=== PATIENT | female | born 1980 | race Caucasian/White ===

== ENCOUNTER 2020-07-02 14:29 | Outpatient (REF) | payer MEDICARE, MEDICAID, SELFPAY ==
--- NOTE | ~2020-07-02 | MM_ITS ---
EXAMINATION: MM DIAGNOSTIC DIGITAL BREAST TOMOSYNTHESIS, BILATERAL Targeted left breast ultrasound CLINICAL INFORMATION: Right breast pain COMPARISON: Mammography: June 01, 2014 TECHNIQUE: Digital breast tomosynthesis is performed in both the craniocaudal and mediolateral oblique views along with computer-aided detection (CAD). Synthesized 2D images are generated from the tomosynthesis. Additional left craniocaudal spot compression film performed. FINDINGS: There are scattered areas of fibroglandular density (ACR BI-RADS breast composition Category b). There are no significant masses, abnormal calcifications, or other abnormalities. There was question of some faint circumscribed densities about the lateral aspect of the left breast for which spot compression view demonstrated to have been superimposition of structures. Targeted left breast ultrasound did not demonstrate any abnormal cystic or solid masses. No region of abnormal distal sound shadowing is seen. No edematous change. Results are provided to the patient at time of visit by the technologist. MM/MM tomosynthesis diagnostic BI IMPRESSION: No specific mammographic and ultrasound evidence to suggest malignancy. ASSESSMENT: BI-RADS 1: Negative RECOMMENDATION: Clinical follow-up This patient's information was entered into a reminder system with a target due date for their next mammogram.
--- NOTE | ~2020-07-02 | US_ITS ---
EXAMINATION: US DIAGNOSTIC ULTRASOUND BREAST, LEFT CLINICAL INFORMATION: Left breast pain upper outer quadrant and axilla. COMPARISON: Mammography of same day and June 01, 2014. TECHNIQUE: Ultrasound of the breast is performed with real-time stevens scale imaging and color Doppler. FINDINGS: There is no focal suspicious finding. There is no solid mass, architectural abnormality, duct ectasia, or edema in the soft tissue planes. A normal-appearing lymph node is seen at the 2:00 position approximately 10 cm from the nipple. Results are discussed with the patient at time of visit. US/US breast LT limited IMPRESSION: No suspicious ultrasound findings to suggest malignancy of the left breast. ASSESSMENT: BI-RADS 1: Negative RECOMMENDATION: Clinical follow-up This patient's information was entered into a reminder system with a target due date for their next mammogram.
== END 2020-07-02 14:30 | disposition home or self-care (01) ==
LOC: HO.MAMMO 14:29
PROVIDERS: Visit Provider General Practice
DX: N64.4 Mastodynia (principal)
CPT/HCPCS: 76642; 77062; 77066

== ENCOUNTER 2020-07-28 10:50 | Outpatient (REF) | payer MEDICARE, MEDICAID, SELFPAY ==
[2020-07-28 13:43] LABS: MANUAL DIFF FLAG NO
[2020-07-28 13:47] LABS: Basophils Percent Auto 0.3 % (0-2); Eosinophils Absolute Auto 0.2 X10*3/uL (0.0-0.4); Hematocrit 39.4 % (37-47); Hemoglobin 12.6 g/dl (12.0-16.0); Imm Gran Abs Auto 0.06 X10*3/uL (0.00-0.03); Imm Gran Pct Auto 0.6 % (0.0-0.4); Lymphocytes Absolute Auto 3.6 X10*3/uL (1.2-4.9); Lymphocytes Percent Auto 34.1 % (20-40); Mean Corpuscular Hemoglobin 29.1 pg (27.0-33.0); Mean Platelet Volume 9.8 fL (9.4-12.3); Monocytes Absolute Auto 0.6 X10*3/uL (0.1-1.2); Monocytes Percent Auto 5.6 % (2-11); Neutrophils Absolute Auto 6.1 X10*3/uL (2.0-8.3); Neutrophils Percent Auto 57.4 % (45-73); Platelet Count 332 X10*3/uL (160-400); Red Blood Count 4.33 X10*6/uL (4.20-5.50); Red Cell Distribution Width 13.5 % (11.0-16.0); White Blood Count 10.6 X10*3/uL (4.8-10.8)
[2020-07-28 14:05] LABS: Glucose Urine UA NEG (NEG); Leukocyte Esterase Urine NEG (NEG); Nitrite Urine NEG (NEG); Specific Gravity - Urine >= 1.030 (1.005-1.025); Urine Blood 3+ (NEG); Urine Ketones NEG (NEG); Urine Protein 3+ MG/DL (NEG-TRACE)
[2020-07-28 14:09] LABS: Appearance Urine HAZY; Color Urine YELLOW
[2020-07-28 14:11] LABS: Renal w Reflex-LAB USE ONLY Order Verified
[2020-07-28 14:16] LABS: Anion Gap 11 (12-20); Blood Urea Nitrogen 21 mg/dL (9-16); Calcium 9.9 mg/dL (8.4-10.2); Carbon Dioxide 28 mmol/L (22-29); Chloride 103 mmol/L (96-108); Estimated Glomerular Filt Rate > 60; Phosphorus 2.5 mg/dL (2.7-4.5); Potassium 4.1 mmol/L (3.3-5.1); Sodium 138 mmol/L (135-145)
[2020-07-28 14:27] LABS: Renal w Reflex Lab Use Only Order verified
[2020-07-28 14:28] LABS: Bacteria Urine TRACE /LPF; Mucus Urine 1+ /LPF; Squamous Epithelial Cell Urine 2+ /LPF
[2020-07-28 14:41] LABS: Vitamin D 25-OH Total 14.9 ng/mL (>30)
[2020-07-28 15:15] LABS: Creatinine Urine 223.07 mg/dL; Protein/Creatinine Ratio, Ur 1.43 (<0.2); Total Protein Urine Random 319 mg/dL (<12)
== END 2020-07-28 10:51 | disposition home or self-care (01) ==
LOC: HO.10HDL 10:50
PROVIDERS: Visit Provider Internal Medicine Nephrology
DX: I12.9 Hypertensive chronic kidney disease with stage 1 through stage 4 chronic kidney disease, or unspecified chronic kidney disease (principal); N18.9 Chronic kidney disease, unspecified; R80.9 Proteinuria, unspecified
CPT/HCPCS: 36415; 80051; 81001; 82306; 82310; 82565; 84100; 84156; 84520; 85025

== ENCOUNTER 2021-07-01 12:15 | Outpatient (REF) | payer MEDICARE, MEDICAID, SELFPAY ==
--- NOTE | ~2021-07-01 | MM_ITS ---
EXAMINATION: MM SCREENING DIGITAL BREAST TOMOSYNTHESIS, BILATERAL CLINICAL INFORMATION: Screening. Asymptomatic. The lifetime risk of breast cancer based on the Tyrer-Cuzick Model is 8%. COMPARISON: Mammography: 07/02/2020, 06/01/2014 (baseline); targeted left breast ultrasound 07/02/2020. TECHNIQUE: Digital breast tomosynthesis is performed in both the craniocaudal and mediolateral oblique views along with computer-aided detection (CAD). Synthesized 2D images are generated from the tomosynthesis. Additional bilateral CC and left MLO views are provided. FINDINGS: There are scattered areas of fibroglandular density (ACR BI-RADS breast composition Category b). There are no significant masses, abnormal calcifications, or other abnormalities. Parenchymal pattern is similar to prior studies. There is no developing density or architectural abnormality. The axilla and skin contours are unremarkable. No significant changes. MM/MM tomosynthesis screening BI IMPRESSION: No mammographic evidence of malignancy. ASSESSMENT: BI-RADS 1: Negative RECOMMENDATION: Routine annual mammography screening. This patient's information was entered into a reminder system with a target due date for their next mammogram.
== END 2021-07-01 12:16 | disposition home or self-care (01) ==
LOC: HO.MAMMO 12:15
PROVIDERS: Visit Provider Student in an Organized Health Care Education/Training Program
DX: Z12.31 Encounter for screening mammogram for malignant neoplasm of breast (principal)
CPT/HCPCS: 77063; 77067

== ENCOUNTER 2021-07-04 10:51 | Outpatient (REF) | payer MEDICARE, MEDICAID, SELFPAY ==
[2021-07-04 13:37] LABS: Anion Gap 10 (12-20); Blood Urea Nitrogen 16 mg/dL (9-16); Calcium 10.8 mg/dL (8.4-10.2); Carbon Dioxide 29 mmol/L (22-29); Chloride 102 mmol/L (96-108); Estimated Glomerular Filt Rate > 60; Potassium 3.8 mmol/L (3.3-5.1); Sodium 137 mmol/L (135-145)
[2021-07-04 14:05] LABS: Creatinine Urine 226.62 mg/dL; Microalbum/Creatinine Ratio Ur 216.2 ug/mg cr; Total Protein Urine Random 69 mg/dL (<12)
[2021-07-04 14:13] LABS: Appearance Urine HAZY; Color Urine YELLOW; Glucose Urine UA NEG (NEG); Leukocyte Esterase Urine NEG (NEG); Nitrite Urine NEG (NEG); PH 5.5 (5.0-8.0); Specific Gravity - Urine 1.025 (1.005-1.025); Urine Blood 3+ (NEG); Urine Ketones 5 MG/DL (NEG); Urine Protein 2+ MG/DL (NEG-TRACE)
[2021-07-04 14:58] LABS: Bacteria Urine 1+ /LPF; RBC Urine 0-2 /HPF (0); Squamous Epithelial Cell Urine 3+ /LPF
== END 2021-07-04 10:52 | disposition home or self-care (01) ==
LOC: HO.10HDL 10:51
PROVIDERS: Visit Provider Internal Medicine Nephrology
DX: Z13.89 Encounter for screening for other disorder (principal)
CPT/HCPCS: 36415; 80051; 81001; 82043; 82310; 82565; 84156; 84520

== ENCOUNTER 2022-07-04 11:10 | Outpatient (REF) | payer MEDICARE, MEDICAID, SELFPAY ==
[2022-07-04 14:17] LABS: Anion Gap 15 (12-20); Blood Urea Nitrogen 14 mg/dL (9-16); Calcium 10.5 mg/dL (8.4-10.2); Carbon Dioxide 26 mmol/L (22-29); Chloride 101 mmol/L (96-108); Estimated Glomerular Filt Rate > 60; Sodium 138 mmol/L (135-145)
[2022-07-04 14:26] LABS: Appearance Urine Turbid; Color Urine Dark Yellow; Glucose Urine UA Negative (Negative); Leukocyte Esterase Urine Small (1+) (Negative); Nitrite Urine Positive (Negative); PH 5.5 (5.0-9.0); Specific Gravity - Urine 1.025 (1.005-1.025); UMIC TRIGGER UA YES; Urine Blood Small (1+) (Negative); Urine Ketones Negative (Negative); Urine Protein 100 (2+) mg/dL (Neg-Trace)
[2022-07-04 14:40] LABS: Bacteria Urine 4+ (None Seen); Hyaline Casts Urine 0-2 /LPF (0-2); RBC Urine 0-2 /HPF (0-2)
[2022-07-04 14:49] LABS: Creatinine Urine 321.29 mg/dL; Microalbum/Creatinine Ratio Ur 76.5 ug/mg cr; Protein/Creatinine Ratio, Ur 0.13 (<0.2); Total Protein Urine Random 43 mg/dL (<12)
== END 2022-07-04 11:11 | disposition home or self-care (01) ==
LOC: HO.10HDL 11:10
PROVIDERS: Visit Provider Internal Medicine Nephrology
DX: R80.1 Persistent proteinuria, unspecified (principal); N02.8 Recurrent and persistent hematuria with other morphologic changes
CPT/HCPCS: 36415; 80051; 81001; 82043; 82310; 82565; 84156; 84520

== ENCOUNTER 2022-08-15 09:20 | Outpatient (REF) | payer MEDICARE, MEDICAID, SELFPAY ==
--- NOTE | ~2022-08-15 | MM_ITS ---
EXAMINATION: MM SCREENING DIGITAL BREAST TOMOSYNTHESIS, BILATERAL CLINICAL INFORMATION: Screening. Asymptomatic. The lifetime risk of breast cancer based on the Tyrer-Cuzick Model is 9%. COMPARISON: Mammography: 07/01/2021, 07/02/2020, 06/01/2014; left breast ultrasound 07/02/2020 TECHNIQUE: Digital breast tomosynthesis is performed in both the craniocaudal and mediolateral oblique views along with computer-aided detection (CAD). Synthesized 2D images are generated from the tomosynthesis. Additional bilateral MLO views are provided. FINDINGS: There are scattered areas of fibroglandular density (ACR BI-RADS breast composition Category b). There are no significant masses, abnormal calcifications, or other abnormalities. Parenchymal pattern is similar to prior studies. There is no developing density or architectural abnormality. The axilla and skin contours are unremarkable. No significant changes. MM/MM tomosynthesis screening BI IMPRESSION: No mammographic evidence of malignancy. ASSESSMENT: BI-RADS 1: Negative RECOMMENDATION: Routine annual mammography screening. This patient's information was entered into a reminder system with a target due date for their next mammogram.
== END 2022-08-15 09:21 | disposition home or self-care (01) ==
LOC: HO.MAMMO 09:20
PROVIDERS: PCP Student in an Organized Health Care Education/Training Program; Visit Provider Student in an Organized Health Care Education/Training Program
DX: Z12.31 Encounter for screening mammogram for malignant neoplasm of breast (principal)
CPT/HCPCS: 77063; 77067

== ENCOUNTER 2022-11-10 10:47 | Outpatient (REF) | payer MEDICARE, MEDICAID, SELFPAY ==
--- NOTE | ~2022-11-10 | XR_ITS ---
EXAMINATION: XR THORACIC SPINE CLINICAL INFORMATION: Thoracic spine pain COMPARISON: None available. TECHNIQUE: 3 views of the thoracic spine were obtained. FINDINGS: There is mild dextroscoliosis of thoracic spine. Vertebral bodies are well aligned and intervertebral discs are seen. There is minimal marginal spurring at the endplates of T10-L1 soft tissues unremarkable XR/XR thoracic spine 3V IMPRESSION: Mild degenerative changes with marginal spurring
== END 2022-11-10 10:48 | disposition home or self-care (01) ==
LOC: HO.XRAY 10:47
PROVIDERS: Visit Provider Nurse Practitioner Family
DX: M54.6 Pain in thoracic spine (principal)
CPT/HCPCS: 72072

== ENCOUNTER 2022-12-13 13:54 | Outpatient (REF) | payer MEDICARE, MEDICAID, SELFPAY | END 2022-12-13 13:55 | disposition home or self-care (01) | LOC: HO.CHCLNP 13:54 | PROVIDERS: Visit Provider Family Medicine | DX: T14.8XXA Other injury of unspecified body region, initial encounter (principal); R82.90 Unspecified abnormal findings in urine; X58.XXXA Exposure to other specified factors, initial encounter; Y93.9 Activity, unspecified; Y92.9 Unspecified place or not applicable; Y99.9 Unspecified external cause status | CPT/HCPCS: 87070; 87086; 87088; 87186; 87205 ==

== ENCOUNTER 2023-03-13 10:28 | Outpatient (REF) | payer MEDICARE, MEDICAID, SELFPAY ==
[2023-03-13 15:17] LABS: Alanine Aminotransferase 12 U/L (0-31); Alkaline Phosphatase 62 U/L (39-117); Anion Gap 14 (12-20); Aspartate Amino Transferase 16 U/L (5-31); Bilirubin Direct 0.2 mg/dL (0.0-0.5); Bilirubin Total 0.5 mg/dL (0.0-1.0); Blood Urea Nitrogen 18 mg/dL (9-16); Calcium 10.5 mg/dL (8.4-10.2); Carbon Dioxide 24 mmol/L (22-29); Chloride 105 mmol/L (96-108); Cholesterol 139 mg/dL (<200); Estimated Glomerular Filt Rate > 60; Glucose Random 77 mg/dL (60-115); HDL Cholesterol 38 mg/dL (>40); LDL Cholesterol Calculated 87 mg/dL (<100); Potassium 3.6 mmol/L (3.3-5.1); Sodium 139 mmol/L (135-145); Total Protein 7.4 g/dL (6.5-8.0); Triglycerides 72 mg/dL (<150)
[2023-03-14 08:54] LABS: ~Hepatitis C Antibody Nonreactive (Nonreactive)
[2023-03-17 07:09] LABS: HIV RNA PCR Qn Copies Not Detected Copies/mL; HIV RNA PCR Qn Log Copies Not Detected Log cps/mL
== END 2023-03-13 10:29 | disposition home or self-care (01) ==
LOC: HO.CHCLDS 10:28
PROVIDERS: Visit Provider Student in an Organized Health Care Education/Training Program
DX: Z00.00 Encounter for general adult medical examination without abnormal findings (principal); I10 Essential (primary) hypertension; N02.B9 Other recurrent and persistent immunoglobulin A nephropathy; Z11.4 Encounter for screening for human immunodeficiency virus [HIV]; Z11.59 Encounter for screening for other viral diseases; Z13.220 Encounter for screening for lipoid disorders
CPT/HCPCS: 36415; 80048; 80061; 80076; 86803; 87536; 87900

== ENCOUNTER 2023-07-31 09:26 | Outpatient (REF) | payer MEDICARE, MEDICAID, SELFPAY ==
[2023-07-31 10:28] LABS: MANUAL DIFF FLAG NO
[2023-07-31 10:42] LABS: Basophils Percent Auto 0.2 % (0-2); Eosinophils Absolute Auto 0.2 X10*3/uL (0.0-0.4); Eosinophils Percent Auto 1.6 % (0-4); Hematocrit 40.3 % (37.0-47.0); Hemoglobin 13.5 g/dl (12.0-16.0); Imm Gran Abs Auto 0.07 X10*3/uL (0.00-0.03); Imm Gran Pct Auto 0.7 % (0.0-0.4); Lymphocytes Absolute Auto 3.6 X10*3/uL (1.2-4.9); Lymphocytes Percent Auto 34.9 % (20-40); Mean Corpuscular HGB Conc 33.5 g/dl (31.0-35.0); Mean Corpuscular Hemoglobin 30.9 pg (27.0-33.0); Mean Corpuscular Volume 92.2 fL (80.0-98.0); Mean Platelet Volume 9.6 fL (9.4-12.3); Monocytes Absolute Auto 0.5 X10*3/uL (0.1-1.2); Monocytes Percent Auto 5.2 % (2-11); Neutrophils Percent Auto 57.4 % (45-73); Platelet Count 249 X10*3/uL (160-400); Red Blood Count 4.37 X10*6/uL (4.20-5.50); Red Cell Distribution Width 13.3 % (11.0-16.0); White Blood Count 10.4 X10*3/uL (4.8-10.8)
[2023-07-31 10:44] LABS: Appearance Urine Clear; Color Urine Yellow; Glucose Urine UA Negative (Negative); Leukocyte Esterase Urine Negative (Negative); Nitrite Urine Negative (Negative); Specific Gravity - Urine 1.015 (1.005-1.025); Urine Blood Negative (Negative); Urine Ketones Negative (Negative); Urine Protein Negative (Neg-Trace)
[2023-07-31 10:51] LABS: Bacteria Urine None Seen (None Seen); Hyaline Casts Urine 0-2 /LPF (0-2); RBC Urine 0-2 /HPF (0-2); WBC Urine 0-5 /HPF (0-5)
[2023-07-31 11:06] LABS: Anion Gap 11 (12-20); Blood Urea Nitrogen 17 mg/dL (9-16); Calcium 10.3 mg/dL (8.4-10.2); Carbon Dioxide 25 mmol/L (22-29); Chloride 103 mmol/L (96-108); Estimated Glomerular Filt Rate > 60; Potassium 3.3 mmol/L (3.3-5.1); Sodium 136 mmol/L (135-145)
[2023-07-31 11:13] LABS: Vitamin D 25-OH Total 21.9 ng/mL (>30)
[2023-07-31 11:18] LABS: Creatinine Urine 108.59 mg/dL; Microalbum/Creatinine Ratio Ur 38.6 ug/mg cr (<30); Protein/Creatinine Ratio, Ur 0.11 (<0.2); Total Protein Urine Random 12 mg/dL (<12)
== END 2023-07-31 09:27 | disposition home or self-care (01) ==
LOC: HO.10HDL 09:26
PROVIDERS: Visit Provider Internal Medicine Nephrology
DX: I12.9 Hypertensive chronic kidney disease with stage 1 through stage 4 chronic kidney disease, or unspecified chronic kidney disease (principal); N18.9 Chronic kidney disease, unspecified; R82.90 Unspecified abnormal findings in urine
CPT/HCPCS: 36415; 80051; 81001; 82043; 82306; 82310; 82565; 82570; 84156; 84520; 85025; 87086

== ENCOUNTER 2023-08-21 13:24 | Outpatient (REF) | payer MEDICARE, MEDICAID, SELFPAY | END 2023-08-21 13:25 | disposition home or self-care (01) | LOC: HO.MAMMO 13:24 | PROVIDERS: PCP Student in an Organized Health Care Education/Training Program; Visit Provider Student in an Organized Health Care Education/Training Program | DX: Z12.31 Encounter for screening mammogram for malignant neoplasm of breast (principal) | CPT/HCPCS: 77063; 77067 ==

== ENCOUNTER → 2023-08-21 13:30 | Outpatient (BNV) | payer MEDICARE, MEDICAID, SELFPAY | PROVIDERS: PCP Student in an Organized Health Care Education/Training Program; Visit Provider Radiology Diagnostic Radiology | DX: Z12.31 Encounter for screening mammogram for malignant neoplasm of breast (principal) | CPT/HCPCS: 77063; 77067 ==

== ENCOUNTER 2024-03-17 11:19 | Outpatient (REF) | payer MEDICARE, MEDICAID, SELFPAY ==
--- OUTSIDE RECORDS SUMMARY | 2024-03-17 11:22 | XMS_ITS | Continuity of Care Document ---
Author Organization [facility] Address [address] [place] [phone]- Care Team Providers Care Tipple Tender Name Role Phone Sheila Rodriguez MD Primary Care Physician En[place] [facility] [place] Date(s): 02/05/24 - 03/06/24 [facility] [address] [place] [phone]- Attending Physician: Marin Lima Admitting Physician: Marin Lima Referring Physician: Marin Lima Encounter Type: Triage Allergies, Adverse Reactions, Alerts No Known Allergies Medications allopurinol 100 mg oral tablet 100 mg, 1, tablet, By Mouth, 2 times a day, # 60 tablet, Refills 0, Maintenance, 08/04/21 12:00:00 PMEDT, Partial fill upon patient request if the prescription is for a schedule II opioid drug. Start Date: 08/04/21 Status: Ordered Quantity: 60.0 Unit: tablet Repeat number: 1 amLODIPine 5 mg oral tablet 5 mg, 1, tablet, By Mouth, Daily in AM, # 30 tablet, Refills 0, Maintenance, 05/29/17 2:18:20 PM EST Start Date: 05/29/17 Status: Ordered Quantity: 30.0 Unit: tablet Repeat number: 1 Hydrochlorothiazide = 12.5 mg, By Mouth, Daily in AM, 0 Refills, Maintenance, 10/22/16 4:36:07 PM EDT Start Date: 10/22/16 Status: Ordered Repeat number: 1 Liletta 52 mg intrauterine device 1 each = 52 mg, Intrauterine, Once, # 1 each, 0 Refills, Soft Stop, 06/12/23 1:36:00 PM EDT, [facility]/pharmacy #[id number], Partial fill upon patient request if the prescription is for a schedule II opioid drug., 160.02, cm, 06/12/23 13:32:00 EDT, Height, 126.3, kg, 06/12/23 13:32:00 EDT, Dry Weight Start Date: 06/12/23 Status: Ordered Quantity: 1.0 Unit: each Repeat number: 1 Oyster Shell Calcium with Vitamin D 500 mg-200 iu oral tablet 1 tablet, By Mouth, Daily in AM, # 60 tablet, 0 Refills, Maintenance, 08/04/21 11:59:00 AM EDT, Tablet, Partial fill upon patient request if the prescription is for a schedule II opioid drug. Start Date: 08/04/21 Status: Ordered Quantity: 60.0 Unit: tablet Repeat number: 1 Tylenol 325 mg oral tablet 650 mg, 2, tablet, By Mouth, Every 4 hours, PRN, # 40 tablet, Refills 0, Tot. Refills 0, Maintenance, for pain, 07/02/23 2:56:00 PM EDT, Route to Pharmacy Electronically, [facility]/pharmacy #[id number], Partial fill upon patient request if the prescription is for a schedule II opioid drug., 158, cm, 07/02/23 13:46:00 EDT, Height, 127, kg, 07/02/23 13:46:00 EDT, Dry Weight Start Date: 07/02/23 Status: Ordered Quantity: 40.0 Unit: tablet Repeat number: 1 valsartan 320 mg oral tablet 1 tablet = 320 mg, By Mouth, Daily in AM, # 30 tablet, 0 Refills, Maintenance, 08/04/21 11:59:00 AM EDT, Tablet, Partial fill upon patient request if the prescription is for a schedule II opioid drug. Start Date: 08/04/21 Status: Ordered Quantity: 30.0 Unit: tablet Repeat number: 1 Problem List Condition Confirmation Course Effective Dates Status H ealth Status Informant Abnormal vaginal bleeding Confirmed Active Last pap smear in [facility] 10/20/09 negative. 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 - Global sclerosis of 1 of 16 glomeruli (5%) with minimal interstitial fibrosis Social History Social History Type Response Smoking Status Never smoker entered on: 07/04/17 Sex Sex Representation Female (finding) Patient Care team information Care Team Personnel Name: Arielle Hahn MA Position: [facility] Outreach Member Role: Lifetime Consulting Physician Name: Sheila Rodriguez MD Position: [facility] Outreach Member Role: PCP Address: [address] [place] [address] Telecom: Name: Marialuisa Hickman RN Position: [facility] Nurse Member Role: Primary Care Nurse Care Team Related Persons Name: GEE GOODRICH Name: STEFANI SUN Insurance Providers Guarantor name: GEE SIMONS Health Plan Information #: 1 Payer: MEDICARE PART B OUTPT Member Number: NA Policy Number: NA Group Number: NA Health Plan Information #: 2 Payer: [place] Member Number: NA Policy Number: NA Group Number: NA
--- OUTSIDE RECORDS SUMMARY | 2024-03-17 11:22 | XMS_ITS | Continuity of Care Document ---
Author Organization [facility] Address [address] [place] [phone]- Care Team Providers Care Cargo Router Name Role Phone Sheila Rodriguez MD Primary Care Phys[id number] - [facility]06/24 [facility] [address] [place] [phone]- Attending Physician: Renato Bowman MD Admitting Physician: Renato Bowman MD Encounter Type: Pre-OutPatient One Time Allergies, Adverse Reactions, Alerts No Known Allergies [...] Refills, Soft Stop, 06/12/23 1:36:00 PM EDT, [facility]/pharmacy #[id number], Partial fill upon patient request [...] 2:56:00 PM EDT, Route to Pharmacy Electronically, [facility]/pharmacy #[id number], Partial fill upon patient request [...] Team Personnel Name: Arielle Hahn MA Position: [facility] Outreach Member Role: Lifetime Consulting Physician Name: Sheila Rodriguez MD Position: [facility] Outreach Member Role: PCP Address: [address] [place] [address] Telecom: Name: Marialuisa Hickman RN Position: [facility] Nurse Member Role: Primary Care Nurse Care Team Related Persons Name: GEE GOODRICH Name: STEFANI SUN Insurance Providers Guarantor name: GEE SIMONS Health Plan Information #: 1 Payer: MEDICARE PART B OUTPT Member Number: [id number] Policy Number: NA Group Number: NA Health Plan Information #: 2 Payer: [place] Member Number: [id number] Policy Number: NA Group Number: NA
[2024-03-17 14:46] LABS: Alanine Aminotransferase 23 U/L (0-31); Albumin Level 3.9 g/dL (3.5-5.0); Alkaline Phosphatase 59 U/L (39-117); Anion Gap 10 (12-20); Aspartate Amino Transferase 35 U/L (5-31); Bilirubin Direct 0.2 mg/dL (0.0-0.5); Bilirubin Total 0.4 mg/dL (0.0-1.0); Blood Urea Nitrogen 14 mg/dL (9-16); Calcium 10.3 mg/dL (8.4-10.2); Carbon Dioxide 29 mmol/L (22-29); Chloride 104 mmol/L (96-108); Cholesterol 141 mg/dL (<200); Estimated Glomerular Filt Rate > 60; Glucose Random 80 mg/dL (60-115); HDL Cholesterol 42 mg/dL (>40); LDL Cholesterol Calculated 82 mg/dL (<100); Potassium 3.5 mmol/L (3.3-5.1); Sodium 139 mmol/L (135-145); Total Protein 7.4 g/dL (6.5-8.0); Triglycerides 86 mg/dL (<150)
[2024-03-18 08:02] LABS: HIV AB/AG Nonreactive (Nonreactive); HIV Num 1 0.04 S/CO (0.00-0.99); ~HepC Num1 0.09 S/CO (0.00-0.79); ~Hepatitis C Antibody Nonreactive (Nonreactive)
[2024-03-19 17:43] LABS: RPR Rapid Plasma Reagin NON-REACTIVE (NON-REACTIVE)
== END 2024-03-17 11:20 | disposition home or self-care (01) ==
LOC: HO.CHCLDS 11:19
PROVIDERS: Visit Provider Student in an Organized Health Care Education/Training Program
DX: I10 Essential (primary) hypertension (principal); Z11.3 Encounter for screening for infections with a predominantly sexual mode of transmission
CPT/HCPCS: 36415; 80048; 80061; 80076; 86592; 86803; 87389

== ENCOUNTER 2024-07-30 10:33 | Outpatient (REF) | payer MEDICARE, MEDICAID, SELFPAY ==
--- OUTSIDE RECORDS SUMMARY | 2024-07-30 11:56 | XMS_ITS | Continuity of Care Document ---
Author Organization [facility] Address [address] [place] [phone]- Care Team Providers Care Lean Sensei Name Role Phone Sheila Rodriguez MD Primary Care Physician [place] [facility] [place] Date(s): 06/26/24 - 07/26/24 [facility] [address] [place] [phone]- Attending Physician: Marin Lima Admitting Physician: Marin Lima Referring Physician: AdmtrMarin Encounter Type: Triage Allergies, Adverse Reactions, Alerts No Known Allergies Medications acetaminophen 325 mg oral capsule 3 capsule = 975 mg, By Mouth, Every 8 hours, PRN as needed for fever, # 90 capsule, 0 Refills, Maintenance, 04/22/24 10:13:00 AM EST, Capsule, [facility]/pharmacy #[id number], Partial fill upon patient request if the prescription is for a schedule II opioid drug., 158, cm, 04/22/24 8:14:00 EST, Height, 126.6, kg, 04/22/24 8:14:00 EST, Dry Weight Start Date: 04/22/24 Status: Ordered Quantity: 90.0 Unit: capsule Repeat number: 1 allopurinol 100 mg oral tablet 100 mg, [...] Quantity: 30.0 Unit: tablet Repeat number: 1 diclofenac sodium 50 mg oral delayed release tablet 1 tablet = 50 mg, By Mouth, 3 times a day, 0 Refills, Maintenance, 06/26/24 11:54:00 AM EDT, Partialfill upon patient request if the prescription is for a schedule II opioid drug. Start Date: 06/26/24 Status: Ordered Repeat number: 1 furosemide 20 mg oral tablet 1, capsule, By Mouth, Once, # 1 tablet, Refills 0, Maintenance, 06/26/24 11:54:00 AM EDT, Partial fill upon patient request if the prescription is for a schedule II opioid drug. Start Date: 06/26/24 Status: Ordered Quantity: 1.0 Unit: tablet Repeat number: 1 Hydrochlorothiazide = 12.5 mg, By Mouth, Daily in AM, 0 Refills, Maintenance, 10/22/16 4:36:07 PM EDT Start Date: 10/22/16 Status: Ordered Repeat number: 1 hydrochlorothiazide 25 mg oral tablet 90 each, 0 Refill(s), TAKE 1 TABLET BY MOUTH EVERY DAY, Refills 0, 06/26/24 11:52:00 AM EDT, Partialfill upon patient request if the prescription is for a schedule II opioid drug. Start Date: 06/26/24 Status: Ordered Repeat number: 1 lidocaine 5% topical film 1 patch, Topically, Daily, PRN Pain , Mild, remove after 12 hours, # 13 each, 0 Refills, Maintenance, 04/22/24 10:13:00 AM EST, Film, [facility]/pharmacy #[id number], Partial fill upon patient request if the prescription is for a schedule II opioid drug., 1 patch Topically Daily,PRN:Pain , Mild,Instr:remove after 12 hours, 158, cm, 04/22/24 8:14:00 EST, Height, 126.6, kg, 04/22/24 8:14:00 EST, Dry Weight Start Date: 04/22/24 Status: Ordered Quantity: 13.0 Unit: each Repeat number: 1 Liletta 52 mg intrauterine device 1 each = 52 mg, Intrauterine, Once, # 1 each, 0 Refills, Soft Stop, 06/12/23 1:36:00 PM EDT, [facility]/pharmacy #[id number], Partial fill upon patient request if [...] Quantity: 60.0 Unit: tablet Repeat number: 1 pregabalin 75 mg oral capsule 1 capsule = 75 mg, By Mouth, 2 times a day, 0 Refills, Maintenance, 06/26/24 11:55:00 AM EDT, Partial fill upon patient request if the prescription is for a schedule II opioid drug. Start Date: 06/26/24 Status: Ordered Repeat number: 1 valsartan 320 mg oral [...] Team Personnel Name: Arielle Hahn MA Position: [facility] Outreach Member Role: Lifetime Consulting Physician Name: Sheila Rodriguez MD Position: [facility] Outreach Member Role: PCP Address: [address] [place] [address] Telecom: Name: Marialuisa Hickman RN Position: [facility] Nurse Member Role: Primary Care Nurse Care [...]
--- OUTSIDE RECORDS SUMMARY | 2024-07-30 11:56 | XMS_ITS | Clinical Summary ---
Author Organization [facility] ity Address [address] [place] [address] Care Team Providers Care Culinary Internship Name Role Phone Unavailable Primary Care Provider Unavailabl e Social History Tobacco Use Types Packs/Day Years Used Date Smoking Tobacco: Never Assessed Comments Unknown Sex and Gender Information Value Date Recorded Sex Assigned at Not on file Legal Sex Female 4:55 AM EST Gender Identity Not on file Sexual Orientation Not on file Plan of Treatment Health Maintenance Due Date Last Done Comments Breast Cancer Screening 1982 DTaP,Tdap,and Td Vaccines (1 - Tdap) 2001 Hepatitis B Vaccines (1 of 3 - 19+ 3-dose series) 2001 Cervical Cancer Screening: P ap Smear 2003 COVID-19 Vaccine (2023-2 5 season) 2023 Influenza Vaccine (Season Ended) 2024 HIB Vaccines Aged Out No longer eligi ble based on patient's age to complete this topic HPV Vaccines Aged Out No longer eligi ble based on patient's age to complete this topic Hepatitis A Vaccines Aged Out No long er eligible based on patient's age to complete this topic IPV Vaccines Aged Out No longer eligi ble based on patient's age to complete this topic MMR Vaccines Aged Out No longer eligi ble based on patient's age to complete this topic Meningococcal ACWY Vaccine Aged Out N o longer eligible based on patient's age to complete this topic Meningococcal B Vaccine Aged Out No l onger eligible based on patient's age to complete this topic Pneumococcal Vaccine: Pediat rics (0 to 5 Years) and At-Risk Patients (6 to 64 Years) Aged Out No longer eligible b ased on patient's age to complete this topic RSV Immunization Patients Un lexi 20 months Aged Out No longer eligible b ased on patient's age to complete this topic Varicella Vaccines Aged Out No longer eligible based on patient's age to complete this topic
--- OUTSIDE RECORDS SUMMARY | 2024-07-30 11:56 | XMS_ITS | Encounter Summary ---
Author Organization [facility] Address [address] [place] [address] Care Team Providers Care Human Resources Records Clerk Name Role Phone Sheila Rodriguez MD Primary Care Provider [phone] Encounter Details Date Type Department Care Team (Late st Contact Info) Description 11/27/2023 Orders Only [facility] [address] [place], [place] [phone] Provider, MD Lillie Social History Tobacco Use Types Packs/Day Years Used Date Smoking Tobacco: Never Smokeless Tobacco: Never Alcohol Use Standard Drinks/Week Comments Never 0 (1 standard drink = 0.6 oz pur e alcohol) Depression Answer Date Recorded Patient Health Questionnaire-9 Score 0 03/07/2023 Patient Health Questionnaire-9 Score 0 03/07/2023 Last PHQ-9: Questionnaire Data Not on file 1 05/08/2022 Housing Stability Answer Date Recorded What is your housing situation today? I have jojo capone 02/27/[address] you li ve. Do you have problems with any of the following? None of the above 02/27/2023 Food Insecurity Answer Date Recorded Within the past 12 months, y ou worried that your food would run out before you got money to buy more: Never True 02/27/2023 Within the past 12 months,th e food you bought just didn't last and you didn't have enough money to get more: Never True Transportation Answer Date Recorded In the past 12 months, has l ack of transportation kept you from medical appts, meetings, work or from getting things needed for daily living? No 02/27/2023 Utilities Answer Date Recorded In the past 12 months, has t he electric, gas, oil or water company threatened to shut off services in your home? No 02/27/2023 Depression Answer Date Recorded Patient Health Questionnaire-2 Score 0 03/07/2023 Comments No Sex and Gender Information Value Date Recorded Sex Assigned at Female 01/30/2022 10:17 AM EDT Legal Sex Female 10:17 AM EDT Gender Identity Female 07/03/2024 3:17 PM EDT Sexual Orientation Straight 07/03/2024 3: 17 PM EDT documented as of this encounter Plan of Treatment Upcoming Encounters Date Type Department Care Team (Late st Contact Info) Description 10/02/2024 11:15 AM EDT Telemedicine [facility] [address], [place] [phone] Sheila Rodriguez MD [address] [place] [address] documented as of this encounter Procedures Procedure Name Priority Date/Time Associated Diagnosis Comments XR SHOULDER 2 OR MORE VIEWS LEFT Routine 11/27/2023 1:17 PM EDT documented in this encounter Results * XR SHOULDER 2 OR MORE VIEWS LEFT (11/27/2023 1:17 PM EDT) Anatomical Region Laterality Modality Radiographic Tari ging us Historical Provider MD IRIZARRY XR PROCEDURES Final R esult documented in this encounter Visit Diagnoses Not on filedocumented in this encounter Additional Health Concerns Assessment Noted Time PHQ-9 Depression Total Score: 0 03/07/20 23 10:23 AM EST documented as of this encounter Care Teams Human Resources Records Clerk Relationship Specialty Start Date End Date Sheila Rodriguez MD [address] [place] [address] PCP - General Family Medicine 05/06/12 documented as of this encounter
--- OUTSIDE RECORDS SUMMARY | 2024-07-30 11:56 | XMS_ITS | Encounter Summary ---
Author Organization [employer] Address [address] [facility] 7 [place] [address] Care Team Providers Care Hospital Admissions Clerk Name Role Phone Sheila Rodriguez MD Primary Care Provider [phone] Encounter Details Date Type Department Care Team (Late st Contact Info) Description 07/28/2022 Orders Only [facility] [address] [place] [address] Claribel Uribe LPN Social History Tobacco Use Types Packs/Day Years Used Date Smoking Tobacco: Never Smokeless Tobacco: Never Comments Unknown Sex and Gender Information Value Date Recorded Sex Assigned at Female 01/30/2022 10:17 AM EDT Legal Sex Female 10:17 AM EDT Gender Identity Female 07/03/2024 3:17 PM EDT Sexual Orientation Straight 07/03/2024 3: 17 PM EDT documented as of this encounter Plan of Treatment Upcoming Encounters Date Type Department Care Team (Late st Contact Info) Description 10/02/2024 11:15 AM EDT Telemedicine [facility] [address] [place] [address] Sheila Rodriguez MD [address] [place] [address] documented as of this encounter Procedures Procedure Name Priority Date/Time Associated Diagnosis Comments BI MAMMOGRAM SCREENING TOMOSYNTHESIS BILATERAL Routine 08/15/2022 9:45 AM EDT documented in this encounter Results * BI Mammogram Screening Tomosynthesis Bilateral (08/15/2022 9:45 AM EDT) Anatomical Region Laterality Modality Breast Bilateral Mammography 08/15/2022 9:45 AM EDT Narrative 08/16/2022 8:35 AM EDT ? [facility] ? [address] ?[place] [address] ? Mammography Report ? Signed ? Patient: Jimenez,Hetal ?MR#: [id number] ?? [id number] ? : 1980 ?Acct:[id number] ? Age/Sex: 42 / F ?ADM Date: 08/15/22 ? Loc: HO.MAMMO ? Attending Dr: Sheila Rodriguez MD ? Ordering Physician: Sheila Rodriguez MD ?Results: 1Negati ?? ve ? Date of Service: 08/15/22 ?Follow Up: 1 Year From Orig ?? inal Mammogram ? Procedure(s): MM tomosynthesis screening BI ?? Accession Number(s): [id number] ? cc: Sheila Rodriguez MD ? EXAMINATION: ?? MM SCREENING DIGITAL BREAST TOMOSYNTHESIS, BILATERAL ? CLINICAL INFORMATION: ? Screening. Asymptomatic. ? The lifetime risk of breast cancer based on the Tyrer-Cuzick Model is ?? 9%. ? COMPARISON: ?? Mammography: 07/01/2021, 07/02/2020, 06/01/2014; left breast ultrasound ?? 07/02/2020 ? TECHNIQUE: ?? Digital breast tomosynthesis is performed in both the craniocaudal and ?? mediolateral oblique views along with computer-aided detection (CAD). ?? Synthesized 2D images are generated from the tomosynthesis. ??Additional ?? bilateral MLO views are provided. ? FINDINGS: ?? There are scattered areas of fibroglandular density (ACR BI-RADS breast ?? composition Category b). ? There are no significant masses, abnormal calcifications, or other ?? abnormalities. ??Parenchymal pattern is similar to prior studies. There ?? is no developing density or architectural abnormality. The axilla and ?? skin contours are unremarkable. No significant changes. ? MM/MM tomosynthesis screening BI ?? IMPRESSION: ?? No mammographic evidence of malignancy. ? ASSESSMENT: ? BI-RADS 1: Negative ? RECOMMENDATION: ?? Routine annual mammography screening. ? This patient's information was entered into a reminder system with a ?? target due date for their next mammogram. ? Dictated By: ?Judah Cerna MD ? Signed By: ?<Electronically signed by Judah Cerna MD in OV> ?08/16/22 0832 ? DD/ 0945 ? TD/TT: ? Supervisor [employer]: REGALADO ? Procedure Note Zina, Image - 09/28/2022 [place] [facility] [address] [place] [address] Mammography Report Signed Patient: Hteal Gaona#: [id number] : 1980Acct:[id number] Age/Sex: 42 / FADM Date: 08/15/22 Loc: HO.MAMMO Attending Dr: Sheila Rodriguez MD Ordering Physician: Sheila Rodriguez MDResults: 1Negati ve Date of Service: 08/15/22Follow Up: 1 Year From Orig inal Mammogram Procedure(s): MM tomosynthesis screening BI Accession Number(s): [id number] cc: Sheila Rodriguez MD EXAMINATION: MM SCREENING DIGITAL BREAST TOMOSYNTHESIS, BILATERAL CLINICAL INFORMATION: Screening. Asymptomatic. The lifetime risk of breast cancer based on the Tyrer-Cuzick Model is 9%. COMPARISON: Mammography: 07/01/2021, 07/02/2020, 06/01/2014; left breast ultrasound 07/02/2020 TECHNIQUE: Digital breast tomosynthesis is performed in both the craniocaudal and mediolateral oblique views along with computer-aided detection (CAD). Synthesized 2D images are generated from the tomosynthesis. Additional bilateral MLO views are provided. FINDINGS: There are scattered areas of fibroglandular density (ACR BI-RADS breast composition Category b). There are no significant masses, abnormal calcifications, or other abnormalities. Parenchymal pattern is similar to prior studies. There is no developing density or architectural abnormality. The axilla and skin contours are unremarkable. No significant changes. MM/MM tomosynthesis screening BI IMPRESSION: No mammographic evidence of malignancy. ASSESSMENT: BI-RADS 1: Negative RECOMMENDATION: Routine annual mammography screening. This patient's information was entered into a reminder system with a target due date for their next mammogram. Dictated By: Judah Cerna MD Signed By: <Electronically signed by Judah Cerna MD in OV> 08/16/22 0832 DD/ 0945 TD/TT: Supervisor [employer]: REGALADO [facility] External Provider IMG BI PROCEDURES Final Result documented in this encounter Visit Diagnoses Not on filedocumented in this encounter Care Teams Hospital Admissions Clerk Relationship Specialty Start Date End Date Sheila Rodriguez MD [address] [place] [id number] PCP - General Family Medicine 05/06/12 documented as of this encounter
--- OUTSIDE RECORDS SUMMARY | 2024-07-30 11:56 | XMS_ITS | Encounter Summary ---
Author Organization [employer] Address [address] [facility] [address] [place] [address] Care Team Providers Care Deli Bakery Clerk Name Role Phone Sheila Rodriguez MD Primary Care Provider [phone] Reason for Visit * Reason Onset Date Comments Results 03/23/2023 Encounter Details Date Type Department Care Team ([facility] st Contact Info) Description 03/23/2023 Telephone [facility] [address] [place] [address] Sheila Rodriguez MD [address] [place] [address] Results Social History Tobacco Use Types Packs/Day Years [...] PM EDT documented as of this encounter Miscellaneous Notes * Telephone Encounter - Sheila Rodriguez MD - 03/27/2023 9:26 PM EST Labs are quite with in normal.Advise hydration and low fat diet * Telephone Encounter - Orville Gaona - 03/27/2023 9:22 AM EST Tc from pt calling in regards to lab results stated in message prior. * Telephone Encounter - Slava Stout RN - 03/23/2023 12:25 PM EST Pt requesting lab results from 03/13/23. Please review and advise nurse's. Thanks. * Telephone Encounter - Hunter Piper - 03/23/2023 9:11 AM EST TC from pt requesting call back regarding Results. Type of results: lab work Date when done: 03/13/23 Facility: [facility] documented in this encounter Plan of Treatment Upcoming Encounters Date Type Department Care Team (Late st Contact Info) Description 10/02/2024 11:15 AM EDT Telemedicine [facility] [address] [place] [address] Sheila Rodriguez MD [address] [place] [address] documented as of this encounter Visit Diagnoses Not on filedocumented in this encounter Additional Health Concerns Assessment Noted Time PHQ-9 Depression Total Score: 0 03/07/20 23 10:23 AM EST documented as of this encounter Care Teams Deli Bakery Clerk Relationship Specialty Start Date End Date Sheila Rodriguez MD [address] [place] [id number] PCP - General Family Medicine 05/06/12 documented as of this encounter
--- OUTSIDE RECORDS SUMMARY | 2024-07-30 11:56 | XMS_ITS | Clinical Summary ---
Author Organization [employer] Address [address] [facility] 7 [place] [address] Care Team Providers Care Clinical Liaison Name Role Phone Sheila Rodriguez MD Primary Care Provider [phone] Allergies Active Allergy Reactions Criticality Noted Date Comments Shellfish-Derived Products 1 Other reaction(s): Other (see comments) Medications allopurinol (Zyloprim) 100 MG tablet Take 100 mg by mouth in the morning. 02/26/20 22 Active Calcium Carbonate-Vitami n D (Oyster Shell Calcium/D) 500-5 MG-MCG tablet Take 1 tablet by mouth every 12 (twelve) hours. 12/09/19 22 Active gabapentin (Neurontin) 300 MG capsule Take 300 mg by mouth at bedtime. 02/07/20 22 Active loratadine (Claritin) 10 MG tablet Take 1 tablet by mouth at bed time. Active valsartan (Diovan) 320 MG tablet Take 1 tablet by mouth in the morning. 07/08/19 21 Active ketoconazole (NIZOral) 2 % cream APPLY TO SCALY DRY PATCHES TWICE A DAY NEEDED 06/23/19 23 Active Levonorgestrel (Liletta, 52 MG,) 20.1 MCG/DAY intrauterine device to be removed 06/13/2021 03/13/20 19 Active Calcium Carb-Cholecalcif eric (Oyster Shell Calcium w/D) 500-5 MG-MCG tablet TAKE 1 TABLET BY MOUTH TWICE A DAY WITH MEALS 180 tablet 1 10/23/19 24 Active amLODIPine (Norvasc) 10 MG tablet TAKE 1 TABLET BY MOUTH EVERY DAY 90 tablet 3 01/23/20 24 Active furosemide (Lasix) 20 MG tablet Take 0.5 tablets (10 mg) by mouth Once per day. 15 tablet 11 03/17/20 24 025 Active albuterol (Ventolin HFA) 108 (90 Base) MCG/ACT inhaler Inhale 2 puffs in the morning, at noon, in the evening, and at bedtime. 18 g 3 05/06/19 25 Active Tirzepatide-Weig ht Management (Zepbound) 2.5 MG/0.5ML solution auto-injector Inject 0.5 mL (2.5 mg) under the skin 1 (one) time per week. 2 mL 3 07/08/19 25 Active hydroCHLOROthiaz maida (HYDRODiuril) 25 MG tabletIndication s:Hypertension, unspecified type TAKE 1 TABLET BY MOUTH EVERY DAY 90 tablet 3 07/19/19 25 Active hydroCHLOROthiaz maida (HYDRODiuril) 25 MG tabletIndication s:Hypertension, unspecified type TAKE 1 TABLET BY MOUTH EVERY DAY 90 tablet 4 07/18/19 24 025 Discontinued Tirzepatide-Weig ht Management (Zepbound) 2.5 MG/0.5ML solution auto-injector Inject 0.5 mL (2.5 mg) under the skin 1 (one) time per week. 2 mL 11 03/17/20 24 025 Discontinued cyclobenzaprine (Flexeril) 10 MG tablet Take 1 tablet (10 mg) by mouth at bedtime for 10 days. 10 tablet 04/29/19 25 025 Discontinued Active Problems Problem Noted Date Diagnosed Date Presence of intrauterine contraceptive device Discharge from umbilicus 12/13/2022 Assessment & Plan (12/13/2022 3:44 PM EDT): Patient with discharge from umbilicus was give Clotrimazole 1% cream and Mupirocin 2% ointment. Send for culture Dysuria 12/13/2022 Assessment & Plan (12/13/2022 3:44 PM EDT): + symptoms and nitrate, will send macrobid, f/up UCx results and sensitivities. 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 IgA nephropathy 08/09/2020 Obesity 08/09/2020 Chronic kidney disease 07/27/2020 Proteinuria 07/27/2020 Hypertensive renal disease 07/27/2020 Encounters Date Type Department Care Team Description 07/18/2024 Refill [facility] [address] [place] [address] Sheila Rodriguez MD Hypertension, unspecified type 07/07/2024 Refill [facility] [address] [place] [address] Sheila Rodriguez MD 07/03/2024 11:30 AM EDT Office Visit [facility] [address] [place] [address] Sheila Rodriguez MD Hypertension, unspecified type (Primary Dx); Sleep apnea, unspecified type 07/03/2024 Travel 05/23/2024 Telephone [facility] [address] [place] [address] Sheila Rodriguez MD Prior Authorization (Zepbound ) 05/06/2024 11:15 AM EST Office Visit [facility] [address] [place] [address] Sheila Rodrgiuez MD Hypertension, unspecified type (Primary Dx); Edema, unspecified type; Chronic kidney disease, unspecified CKD stage 05/06/2024 Travel 05/05/2024 Telephone [facility] [address] [place] [address] Sheila Rodriguez MD Chart Prep from Last 3 Months Immunizations Name Administration Dates Next Due Hep B, adult 10/18/2017 Influenza injectable quadrivalent preservative f ree 03/07/2023,02/21/2022 Influenza, Split (incl. purified surface antigen ) 12/26/2012 Influenza, seasonal, injectable, preservative fr ee 03/17/2024 Tdap 03/07/2023,11/28/2011 Social History Tobacco Use Types Packs/Day Years Used Date Smoking Tobacco: Never Smokeless Tobacco: Never Tobacco Cessation:Counseling Given: Not Answered Alcohol Use Standard Drinks/Week Comments Never 0 (1 standard drink = 0.6 oz pur e alcohol) Depression Answer Date Recorded Patient Health Questionnaire-9 Score 2 03/17/2024 Patient Health Questionnaire-9 Score 2 03/17/2024 Last PHQ-9: Questionnaire Data Not on file 1 05/18/2023 Housing Stability Answer Date Recorded What is your housing situation today? I have jojo capone 04/29/[address] you li ve. Do you have problems with any of the following? None of the above 04/29/2024 Food Insecurity Answer Date Recorded Within the past 12 months, y ou worried that your food would run out before you got money to buy more: Never True 04/29/2024 Within the past 12 months,th e food you bought just didn't last and you didn't have enough money to get more: Never True Transportation Answer Date Recorded In the past 12 months, has l ack of transportation kept you from medical appts, meetings, work or from getting things needed for daily living? No 04/29/2024 Utilities Answer Date Recorded In the past 12 months, has t he electric, gas, oil or water company threatened to shut off services in your home? No 04/29/2024 Depression Answer Date Recorded Patient Health Questionnaire-2 Score 2 03/17/2024 Internet Access Answer Date Recorded Internet Access Q1 Yes 04/29/2024 Internet Access Q2 Not on file 04/29/2024 Comments No Sex and Gender Information Value Date Recorded Sex Assigned at Female 01/30/2022 10:17 AM EDT Legal Sex Female 10:17 AM EDT Gender Identity Female 07/03/2024 3:17 PM EDT Sexual Orientation Straight 07/03/2024 3: 17 PM EDT Last Filed Vital Signs Vital Sign Reading Time Taken Comments Blood Pressure 137/75 07/03/2024 11:41 AM EDT Pulse 78 07/03/2024 11:41 AM EDT Temperature 36.7 ??C (98.1 ??F) 07/03/2024 11:41 AM E DT Respiratory Rate 16 07/03/2024 11:41 AM EDT Oxygen Saturation 98% 07/03/2024 11:41 AM EDT Inhaled Oxygen Concentration - - Weight 129 kg (284 lb) 07/03/2024 11:41 AM EDT Height 162.6 cm (5' 4 ) 07/03/2024 11:41 AM EDT Body Mass Index 48.75 07/03/2024 11:41 AM EDT Plan of Treatment Upcoming Encounters Date Type Department Care Team (Late st Contact Info) Description 10/02/2024 11:15 AM EDT Telemedicine [facility] [address] [place] [address] Sheila Rodriguez MD [address] [place] [address] Health Maintenance Due Date Last Done Comments Family Planning (PISQ) 1997 Hepatitis B Vaccines (2 of 3 - 19+ 3-dose series) 11/15/2017 10/18/2017 Pap Smear 09/08/2023 09/07/2020 COVID-19 Vaccine ( season) 2023 Alcohol/Substance Use Screening 03/17/2025 03/17/2024 Depression Screening 03/17/2025 03/17/2024, 03/17/20 24 SDOH Screening 04/29/2025 04/29/2024 Tobacco Screening 05/06/2025 05/06/2024 Mammogram 08/20/2025 08/21/2023, 07/31, 07/01/2021, Additional history exists Cervical Cancer Screening 09/07/2025 HPV/Cotest 09/07/2025 09/07/2020, 03/13/2017 Lipid Panel 03/17/2029 03/17/2024, 03/02, 05/01/2022, Additional history exists Zoster Vaccines (1 of 2) 2032 DTaP/Tdap/Td Vaccines (3 - Td or Tdap) 03/07/2033 03/07/2023, 11/28/2011 RSV Patients and Patients Aged 60 years or older (1 - 1-dose 75+ series) 2057 HIV Screening Completed 03/17/2024, 07/02, 01/08/2020 Hepatitis C Screening Completed 03/17/2024 , 03/13/2023, 07/21/2020, Additional history exists Influenza Vaccine Completed 03/17/2024, , 02/21/2022, Additional history exists HIB Vaccines Aged Out No longer eligi [...] patient's age to complete this topic Meningococcal Vaccine Aged Out No sneha awa eligible based on patient's age to complete this topic Pneumococcal Vaccine: Pediatrics (0 to 5 Years) and At-Risk Patients (6 to 49) Years) Aged Out No longer eligible based on patient's age to complete this topic RSV under 20 months Aged Out No longe r eligible based on patient's age to complete this topic Rotavirus Vaccines Aged Out No longer eligible based on patient's age to complete this topic Procedures Procedure Name Priority Date/Time Associated Diagnosis Comments HEPATITIS C AB W/REFL TO HCV RNA, QN, PCR Routine 03/17/2024 11:21 AM EST Screen for STD (sexually transmitted disease) HIV 1/2 ANTIGEN/ANTIBODY, FOURTH GENERATION W/RFL Routine 03/17/2024 11:21 AM EST Screen for STD (sexually transmitted disease) LIPID PANEL, STANDARD Routine 03/17/2024 11:21 AM EST Hypertension, unspecified type BI MAMMOGRAM SCREENING TOMOSYNTHESIS BILATERAL Routine 08/21/2023 1:50 PM EDT HPV MRNA E6/E7 Routine 09/07/2020 1:48 PM EDT THINPREP PAP Routine 09/07/2020 1:48 PM EDT from Last 3 Months or Most Recently Relevant to Health Maintenance Results * Hepatitis C Antibody with Reflex to HCV, RNA, Quantitative, Real-Time PCR (03/17/2024 11:21 AM EST) Hepatitis C Antibody Nonreactive Nonreactive [facility] Comment:Antibodies to HCV no t detected; does not exclude early acuteHCV infection. Blood Venous blood specimen / Unknown 03/17/2024 11:21 AM EST 03/17/2024 2:01 PM EST Sheila Rodriguez MD LAB BLOOD ORDERABLES Final Resul t Performing Organization Address City/[facility]/ZIP Co de Phone Number [facility] [address] [place] [address] [phone] * HIV-1/2 Antigen and Antibodies, Fourth Generation, with Reflexes (03/17/2024 11:21 AM EST) [facility] HIV AB/AG Nonreactive Nonreactive [facility] Comment:HIV-1 p24 Ag and/or HIV-1/HIV-2 Ab not detected.A test result that is nonreactive does not exclude thepossibility of exposure to or infection with HIV-1 and/orHIV-2. Nonreactive results in this assay for individualswith prior exposure to HIV-1 and/or HIV-2 may be due toantigen and antibody levels that are below the limit ofdetection of this assay.The [employer] HIV Ag/Ab Combo assay result andsupplemental assay results should be interpreted inconjunction with the patient's clinical presentation,history and other laboratory results. If the results areinconsistent with clinical evidence, additional testing issuggested to confirm the result. Blood Venous blood specimen / Unknown 03/17/2024 11:21 AM EST 03/17/2024 2:01 PM EST Sheila Rodriguez MD LAB BLOOD ORDERABLES Final Resul t Performing Organization Address City/[facility]/ZIP Co de Phone Number [facility] [address] [place] [address] [phone] * Lipid Panel, Standard (03/17/2024 11:21 AM EST) [facility] Triglycerides 86 <150 mg/dL [facility] Comment:Slight Lipemia.Lakisha able Triglyceride: less than 150 mg/dLBorderline High Triglyceride 150-199 mg/dLHigh Triglyceride: 200-499 mg/dLVery High Triglyceride: greater than or equal to 5OO mg/dL Cholesterol 141 <200 mg/dL [facility] Comment:Desirable Cholestero l: less than 200 mg/dLBorderline High Cholesterol: 200-239 mg/dLHigh Cholesterol: greater than 239 mg/dL LDL Cholesterol Calculated 82 <100 mg/dL [facility] Comment:Desirable LDL: less than 100 mg/dLNear Optimal/Above Optimal LDL: 110- 129 mg/dLBorderline High LDL: 130-159 mg/dLHigh LDL: 160-189 mg/dLVery High LDL: greater than or equal to 190 mg/dL HDL Cholesterol 42 >40 mg/dL [facility] Comment:Desirable HDL: great er than 40 mg/dL Note: This HDL assay may give artificially low results in patients with liver disease. Blood Venous blood specimen / Unknown 03/17/2024 11:21 AM EST 03/17/2024 2:01 PM EST us Sheila Rodriguez MD LAB BLOOD ORDERABLES Final Resul t Performing Organization Address City/State/[facility] Co de Phone Number [facility] [address] [place] [phone] * BI Mammogram Screening Tomosynthesis Bilateral (08/21/2023 1:50 PM EDT) Anatomical Region Laterality Modality Breast Bilateral Mammography 08/21/2023 1:50 PM EDT Narrative 09/21/2023 8:45 AM EDT ? [facility] ? [address] ?[place] [address] ? Mammography Report ? Signed ? Patient: Jimenez,Hetal ?MR#: [id number] ?? [id number] ? : 1980 ?Acct:[id number] ? Age/Sex: 43 / F ?ADM Date: 05/21/24 ? Loc: HO.MAMMO ? Attending Dr: Sheila Rodriguez MD ? Ordering Physician: Sheila Rodriguez MD ?Results: 1Negati ?? ve ? Date of Service: 08/21/23 ?Follow Up: 1 Year From Orig ?? inal Mammogram ? Procedure(s): MM tomosynthesis screening BI ?? Accession Number(s): [id number] ? cc: Sheila Rodriguez MD ? EXAMINATION: ?? MM SCREENING DIGITAL BREAST TOMOSYNTHESIS, BILATERAL ? CLINICAL INFORMATION: ? Screening. Asymptomatic. ? COMPARISON: ?? Mammography: This study is compared with prior exams dating back to ?? 2020. ? TECHNIQUE: ?? Digital breast tomosynthesis is performed in both the craniocaudal and ?? mediolateral oblique views along with computer-aided detection (CAD). ?? Synthesized 2D images are generated from the tomosynthesis. ? FINDINGS: ?? There are scattered areas of fibroglandular density (ACR BI-RADS breast ?? composition Category b). ? There are no significant masses, abnormal calcifications, or other ?? abnormalities. ? MM/MM tomosynthesis screening BI ?? IMPRESSION: ?? No mammographic evidence of malignancy. ? ASSESSMENT: ? BI-RADS BI-RADS 1 - Negative ? RECOMMENDATION: ?? Routine annual mammography screening. ? 1 year F/U ? This examination should not preclude the clinical evaluation of a ?? suspicious palpable abnormality. ? This patient's information was entered into a reminder system with a ?? target due date for their next mammogram. ? Dictated By: ?Sarah Mike MD ? Signed By: ?<Electronically signed by Sarah Mike MD in OV> ? 09/21/23 0841 ? DD/ 1350 ? TD/TT: ? Tie Carrier: ? Procedure Note Donotuseinterpreter, Image - 09/21/2023 Marybel [facility] [address] [place] [address] Mammography Report Signed Patient: Hetal GaonaMR#: [id number] : 1980Acct:[id number] Age/Sex: 43 / FADM Date: 08/21/23 Loc: MAMMO Attending Dr: Sheila Rodriguez MD Ordering Physician: Sheila Rodriguez MDResults: 1Negati ve Date of Service: 08/21/23Follow Up: 1 Year From Orig inal Mammogram Procedure(s): MM tomosynthesis screening BI Accession Number(s): [id number] cc: Sheila Rodriguez MD EXAMINATION: MM SCREENING DIGITAL BREAST TOMOSYNTHESIS, BILATERAL CLINICAL INFORMATION: Screening. Asymptomatic. COMPARISON: Mammography: This study is compared with prior exams dating back to 2020. TECHNIQUE: Digital breast tomosynthesis is performed in both the craniocaudal and mediolateral oblique views along with computer-aided detection (CAD). Synthesized 2D images are generated from the tomosynthesis. FINDINGS: There are scattered areas of fibroglandular density (ACR BI-RADS breast composition Category b). There are no significant masses, abnormal calcifications, or other abnormalities. MM/MM tomosynthesis screening BI IMPRESSION: No mammographic evidence of malignancy. ASSESSMENT: BI-RADS BI-RADS 1 - Negative RECOMMENDATION: Routine annual mammography screening. 1 year F/U This examination should not preclude the clinical evaluation of a suspicious palpable abnormality. This patient's information was entered into a reminder system with a target due date for their next mammogram. Dictated By: Sarah Mike MD Signed By: <Electronically signed by Sarah Mike MD in OV> 09/21/23 0841 DD/ 1350 TD/TT: Tie Carrier: us Sheila Rodriguez MD IMG BI PROCEDURES Final Result * THINPREP PAP (09/07/2020 1:48 PM EDT) Clinical Information: None given [facility] COMMENT SEE COMMENT [facility] Comment: EXPLANATORY NOTE: ? The Pap is a screening test for cervical cancer. It is ?? not a diagnostic test and is subject to false negative ?? and false positive results. It is most reliable when a ?? satisfactory sample, regularly obtained, is submitted ?? with relevant clinical findings and history, and when ?? the Pap result is evaluated along with historic and ?? current clinical information. ?? Clean Up Supervisor : SEE COMMENT [facility] Comment: LEONARD, CT(ASCP) CT screening location: [address] ??[id number] Interpretation/R esult: Negative for intraepithelial lesion or malignancy. [facility] LMP: NONE GIVEN [facility] Prev. BX: NONE [facility]IVEN [facility] Prev. PAP: NONE GIVEN [facility] SOURCE: None given [facility] Statement Of Adequacy: SEE COMMENT [facility] Comment: Satisfactory for evaluation. Endocervical/transformation zone component absent. 09/07/2020 1:48 PM EDT Maya STEVENSON LAB PATHOLOGY ORDERABLES Final Result Performing Organization Address City/State/[facility] Co de Phone Number [facility] [address] * HPV mRNA E6/E7 (09/07/2020 1:48 PM EDT) HPV nRNA E6/E7 Not Detected Not Detected [facility] Comment: Methodology: Information Technology Advisor-Mediated Amplification This assay detects E6/E7 viral messenger RNA (mRNA) from 14 high-risk HPV types (16,18,31,33,35,39,45,51,52,56,58,59,66,68). ? The analytical performance characteristics of this assay have been determined by [employer]. The modifications have not been cleared or approved by the FDA. This assay has been validated pursuant to the CLIA regulations and is used for clinical purposes. ?? For additional information, please refer to http://education.[employer]/faq/YYA204k3 (This link if provided for information/ educational purposes only.) 09/07/2020 1:48 PM EDT us Maya Yi CNM LAB BLOOD ORDERABLES Fany burnette Result [facility] [address] from Last 3 Months or Most Recently Relevant to [place] [id number] [facility] Care Teams Clinical Liaison Relationship Specialty Start Date End Date Sheila Rodriguez MD [address] [place] [phone] PCP - General Family Medicine 05/06/12
--- OUTSIDE RECORDS SUMMARY | 2024-07-30 11:56 | XMS_ITS | Encounter Summary ---
Author Organization [employer] Address [address] [facility] [address]t [place] [address] Care Team Providers Care Grant Coordinator Name Role Phone Sheila Rodriguez MD Primary Care Provider [phone] Reason for Visit * Reason Comments Med Change Request Encounter Details Date Type Department Care Team ([facility] st Contact Info) Description 07/07/2024 Refill [facility] [address] [place], [place] [phone] Sheila Rodriguez MD [address] [place] [address] Social History Tobacco Use Types Packs/Day Years [...] [facility] [address] [place] [address] Sheila Rodriguez MD [address] [place] [address] documented as of this encounter Visit Diagnoses Not on filedocumented in this encounter Additional Health Concerns Assessment Noted Time PHQ-9 Depression Total Score: 2 03/17/20 24 10:35 AM EST documented as of this encounter Care Teams Grant Coordinator Relationship Specialty Start Date End Date Sheila Rodriguez MD [address] [place] [phone] PCP - General Family Medicine 05/06/12 documented as of this encounter
--- OUTSIDE RECORDS SUMMARY | 2024-07-30 11:56 | XMS_ITS | Encounter Summary ---
Author Organization [employer] Address [address] [facility] [address]t [place] [address] Care Team Providers Care Time Signal Wirer Name Role Phone Sheila Rodriguez MD Primary Care Provider [phone] Reason for Visit * Reason Comments Med Refill Encounter Details Date Type Department Care Team ([facility] st Contact Info) Description 10/02/2023 Refill [facility] [address] [place], [place] [phone] Sheila Rodriguez MD [address] [place] [address] Social History Tobacco Use Types Packs/Day Years [...] Info) Description 10/02/2024 11:15 AM EDT Telemedicine [facility] [address] [place] [address] Sheila Rodriguez MD [address] [place] [address] documented as of this encounter Visit Diagnoses Not on filedocumented in this encounter Additional Health Concerns Assessment Noted Time PHQ-9 Depression Total Score: 0 03/07/20 23 10:23 AM EST documented as of this encounter Care Teams Time Signal Wirer Relationship Specialty Start Date End Date Sheila Rodriguez MD [address] [place] [phone] PCP - General Family Medicine 05/06/12 documented as of this encounter
--- OUTSIDE RECORDS SUMMARY | 2024-07-30 11:56 | XMS_ITS | Clinical Summary ---
Author Organization [facility] Address [address] [place] [address] Phone Care Team Providers Care Mirror Inspector Name Role Phone Sheila Rodriguez MD Primary Care Provider [phone] Allergies Active Allergy Reactions Criticality Noted Date Comments Shellfish-Derived Products Other (see comments) 07/27/2020 Medications amLODIPine (NORVASC) 10 MG tablet Take 1 tablet by mouth 1 (one) time each day Active Blood Pressure Monitoring (Blood Pressure Cuff) misc 1 kit 11/21/2018 Active Calcium Carbonate-Vitami n D (calcium-vitamin D) 500-200 MG-UNIT tablet Take 500 mg by mouth 2 (two) times a day with meals 07/04/2020 Active hydroCHLOROthiaz maida 25 MG tablet TAKE 1 TABLET BY MOUTH EVERY DAY 90 tablet 5 01/05/2021 Active gabapentin (NEURONTIN) 300 MG capsule Take 300 mg by mouth at bed time 06/09/2021 Active allopurinol (ZYLOPRIM) 100 MG tablet Take 100 mg by mouth 1 (one) time each day Active valsartan (DIOVAN) 320 MG tablet Take 1 tablet (320 mg total) by mouth 1 (one) time each day 90 tablet 3 09/04/2023 Active Active Problems Problem Noted Date Diagnosed Date Abnormal vaginal bleeding 07/05/2021 Cancer cervix screening - wanted 07/05/2021 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) 07/2021 Hypertensive disorder 07/05/2021 Uses IUD (intrauterine device) contraception 07/2021 Left lower quadrant pain 07/05/2021 Primigravida 07/05/2021 Obesity 07/05/2021 IgA nephropathy 08/09/2020 Obesity 08/09/2020 Chronic kidney disease 07/27/2020 Hypertensive renal disease 07/27/2020 Proteinuria 07/27/2020 Resolved Problems Problem Noted Date Diagnosed Date Resolved Date IgA myeloma 08/09/2020 08/09/2020 Family History Medical History Relation Comments Cancer Mother Hypertension Mother Relation Status Comments Father Mother Alive Social History Tobacco Use Types Packs/Day Years Used Date Smoking Tobacco: Never Tobacco Cessation:Counseling Given: No Alcohol Use Standard Drinks/Week Comments No 0 (1 standard drink = 0.6 oz pur e alcohol) Comments Unknown Sex and Gender Information Value Date Recorded Sex Assigned at Not on file Legal Sex Female 5:03 PM EST Gender Identity Not on file Sexual Orientation Not on file Last Filed Vital Signs Vital Sign Reading Time Taken Comments Blood Pressure 139/76 08/06/2023 1:52 PM EDT Pulse 77 08/06/2023 1:52 PM EDT Temperature - - Respiratory Rate - - Oxygen Saturation 99% 08/06/2023 1:52 PM EDT Inhaled Oxygen Concentration - - Weight 128 kg (282 lb 12.8 oz) 08/06/2023 1:52 P M EDT Height 157.5 cm (5' 2 ) 04/24/2019 12:01 PM EST Body Mass Index 51.72 04/24/2019 12:01 PM EST Plan of Treatment Upcoming Encounters Date Type Department Care Team (Late st Contact Info) Description 08/07/2024 1:30 PM EDT Office Visit [facility] [address] [place] [address] Chano Obregon MD [address] [facility] [address] [place] [address] Health Maintenance Due Date Last Done Comments Hepatitis B Vaccine (1 of 3 - 19+ 3-dose series) 2001 10/18/2017 Pneumococcal Vaccine: Peds ( 0 to 5 Years) and At-Risk Patients (6 to 49 Years) (1 of 2 - PCV) 2001 Influenza Vaccine Completed 03/17/2024, , 02/21/2022, Additional history exists Insurance Medicare Medicaid [place] Medicare Medicaid [place] Care Teams Mirror Inspector Relationship Specialty Start Date End Date Sheila Rodriguez MD [address] [place] [phone] PCP - General 04/12/20
[2024-07-30 13:30] LABS: Anion Gap 13 (12-20); Blood Urea Nitrogen 21 mg/dL (9-16); Calcium 10.1 mg/dL (8.4-10.2); Carbon Dioxide 28 mmol/L (22-29); Chloride 102 mmol/L (96-108); Estimated Glomerular Filt Rate > 60; Potassium 3.6 mmol/L (3.3-5.1); Sodium 139 mmol/L (135-145)
[2024-07-30 13:42] LABS: Creatinine Urine 88.78 mg/dL; Microalbum/Creatinine Ratio Ur 50.6 ug/mg cr (<30); Protein/Creatinine Ratio, Ur 0.11 (<0.2); Total Protein Urine Random 10 mg/dL (<12)
[2024-07-30 13:44] LABS: Appearance Urine Clear; Color Urine Yellow; Glucose Urine UA Negative (Negative); Leukocyte Esterase Urine Small (1+) (Negative); Nitrite Urine Negative (Negative); PH 5.5 (5.0-9.0); Specific Gravity - Urine 1.015 (1.005-1.025); UMIC TRIGGER UACC YES; Urine Blood Negative (Negative); Urine Ketones Negative (Negative); Urine Protein Negative (Neg-Trace)
[2024-07-30 14:02] LABS: Bacteria Urine 1+ (None Seen); Hyaline Casts Urine 0-2 /LPF (0-2); RBC Urine 0-2 /HPF (0-2); UACC Culture Trigger YES; WBC Urine 0-5 /HPF (0-5)
== END 2024-07-30 10:34 | disposition home or self-care (01) ==
LOC: HO.10HDL 10:33
PROVIDERS: Visit Provider Internal Medicine Nephrology
DX: N02.8 Recurrent and persistent hematuria with other morphologic changes (principal); R80.9 Proteinuria, unspecified; E66.9 Obesity, unspecified
CPT/HCPCS: 36415; 80051; 81001; 82043; 82310; 82565; 82570; 84156; 84520; 87086

== ENCOUNTER 2024-08-26 12:56 | Outpatient (REF) | payer MEDICARE, MEDICAID, SELFPAY ==
--- OUTSIDE RECORDS SUMMARY | 2024-08-26 12:59 | XMS_ITS | Encounter Summary ---
Author Organization [employer] Address [address] [facility] 7 [place] [address] Care Team Providers Care Ready To Wear Department Manager Name Role Phone Sheila Rodriguez MD Primary Care Provider [phone] Reason for Visit * Reason Onset Date Comments Results 03/23/2023 Encounter Details Date Type Department Care Team ([facility] Contact Info) Description 03/23/2023 Telephone [facility] MEDICINE [address] [place] [address] Sheila Rodriguez MD [address] [place] [address] Results Social History Tobacco Use Types Packs/Day [...] lab work Date when done: 03/13/23 Facility: [facility] documented in this encounter Plan of Treatment Upcoming Encounters Date Type Department Care Team (Late st Contact Info) Description 10/02/2024 11:15 AM EDT Telemedicine [facility] & PEDS [address] [place] [address] Sheila Rodriguez MD [address] [place] [address] documented as of this encounter Visit Diagnoses Not on filedocumented in this encounter Additional Health Concerns Assessment Noted Time PHQ-9 Depression Total Score: 0 03/07/20 23 10:23 AM EST documented as of this encounter Care Teams Ready To Wear Department Manager Relationship Specialty Start Date End Date Sheila Rodriguez MD [address] [place] [phone] PCP - General Family Medicine 05/06/12 documented as of this encounter
== END 2024-08-26 12:57 | disposition home or self-care (01) ==
LOC: HO.MAMMO 12:56
PROVIDERS: PCP Student in an Organized Health Care Education/Training Program; Visit Provider Student in an Organized Health Care Education/Training Program
DX: Z12.31 Encounter for screening mammogram for malignant neoplasm of breast (principal)
CPT/HCPCS: 77063; 77067

== ENCOUNTER → 2024-08-26 13:15 | Outpatient (BNV) | payer MEDICARE, MEDICAID, SELFPAY | PROVIDERS: PCP Student in an Organized Health Care Education/Training Program; Visit Provider Internal Medicine | DX: Z12.31 Encounter for screening mammogram for malignant neoplasm of breast (principal) | CPT/HCPCS: 77063; 77067 ==

== ENCOUNTER 2024-09-22 17:29 | Outpatient (REF) | payer MEDICARE, MEDICAID, SELFPAY ==
[2024-09-22 17:35] LABS: Appearance Urine Clear; Color Urine Yellow; Glucose Urine UA Negative (Negative); Leukocyte Esterase Urine Negative (Negative); Nitrite Urine Negative (Negative); Urine Blood Negative (Negative); Urine Ketones Negative (Negative); Urine Protein Trace mg/dL (Neg-Trace)
[2024-09-22 17:43] LABS: Bacteria Urine Trace (None Seen); Hyaline Casts Urine 0-2 /LPF (0-2); RBC Urine 0-2 /HPF (0-2); WBC Urine 0-5 /HPF (0-5)
--- OUTSIDE RECORDS SUMMARY | 2024-09-22 17:50 | XMS_ITS | Encounter Summary ---
Author Organization [employer] Address [address] [facility] 7 [place] [address] Care Team Providers Care Mechatronics Technician Name Role Phone Sheila Rodriguez MD Primary Care Provider [phone] Reason for Visit * Reason Onset Date Comments Results 03/23/2023 Encounter Details Date Type Department Care Team ([facility] Contact Info) Description 03/23/2023 Telephone [facility] MEDICINE [address] [place] [address] Sheila Rodriguez MD [address] [place] [address] Results Social History Tobacco Use Types Packs/Day [...] lab work Date when done: 03/13/23 Facility: [facility] documented in this encounter Plan of Treatment Upcoming Encounters Date Type Department Care Team (Late st Contact Info) Description 10/01/2024 3:45 PM EDT Telemedicine [facility] MED [facility] PEDS [address] [place] [address] Sheila Rodriguez MD [address] [place] [address] documented as of this encounter Visit Diagnoses Not on filedocumented in this encounter Additional Health Concerns Assessment Noted Time PHQ-9 Depression Total Score: 0 03/07/20 23 10:23 AM EST documented as of this encounter Care Teams Mechatronics Technician Relationship Specialty Start Date End Date Sheila Rodriguez MD [address] [place] [phone] PCP - General Family Medicine 05/06/12 documented as of this encounter
[2024-09-23 10:59] LABS: Bacterial Vaginosis PCR NEGATIVE (Negative); Candida Group PCR NOT DETECTED (Not Detect); Candida glab krusei PCR NOT DETECTED (Not Detect); Trichomonas vaginalis PCR NOT DETECTED (Not Detect)
[2024-09-23 11:33] LABS: CT PCR NOT DETECTED (Not Detect.); NG PCR NOT DETECTED (Not Detect.)
== END 2024-09-22 17:30 | disposition home or self-care (01) ==
LOC: HO.CHCLNP 17:29
PROVIDERS: Visit Provider Internal Medicine
DX: N89.8 Other specified noninflammatory disorders of vagina (principal); R10.9 Unspecified abdominal pain; Z11.3 Encounter for screening for infections with a predominantly sexual mode of transmission
CPT/HCPCS: 81001; 81515; 87086; 87147; 87491; 87591

== ENCOUNTER 2024-10-22 13:28 | Outpatient (REF) | payer MEDICARE, MEDICAID, SELFPAY ==
--- NOTE | ~2024-10-22 | XR_ITS ---
EXAMINATION: XR ABDOMEN KUB CLINICAL INDICATION: Flank pain COMPARISON: None available. TECHNIQUE: AP view of the abdomen. FINDINGS: No calcifications overlapping the kidney shadows. There is a T-shaped contraceptive device overlapping the lower sacrococcyx. Subchondral cyst formation is asymmetric joint space narrowing and sclerosis along the articular surfaces of the coxofemoral joints bilaterally with the volume loss of the femoral heads bilaterally. Multilevel thoracolumbar spondylosis. The liver shadow projects throughout the rib cage. No intestinal obstruction pattern. XR/XR KUB IMPRESSION: No nephrolithiasis based upon x-ray. 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 Multilevel thoracolumbar spondylosis and levoconvex scoliosis, lumbar spine. Probable mild hepatomegaly. Electronically signed by: Mazin Santiago MD 10/22/2024 02:02 PM EDT
--- NOTE | ~2024-10-22 | XR_ITS ---
CLINICAL HISTORY: BILATERAL HIP PAIN, GROIN PAIN --- Additional Notes or Special Instructions: WO 2 x-rays of the right hip. Two x-rays of the left hip. Comparison: CR/SR - XR KUB - 10/22/24 13:43 EDT Findings: Flattening of the right femoral head due to the [id number] articulation. Possible avascular necrosis of both femoral heads. Severe degenerative changes of both hips with [id number] articulation, subchondral cyst formation, and subchondral sclerosis. Orthopedics consultation is recommended. Intrauterine device projects over the pelvis. IMPRESSION: 1. Severe degenerative changes of both hips with [id number]-[id number] articulation, subchondral cyst formation, and subchondral sclerosis. Orthopedics consultation is recommended. 2. Possible avascular necrosis of both femoral heads. This document has been electronically signed by: Laron Webster DO on 10/23/2024 13:20:35
--- OUTSIDE RECORDS SUMMARY | 2024-10-22 14:03 | XMS_ITS | Clinical Summary ---
Author Organization [facility] Address [address] [place] [address] [place] [address] Phone Care Team Providers Care Physician Neonatology Name Role Phone Unknown, Unknown Primary Care Provider Beni smalls Social History Tobacco Use Types Packs/Day Years Used Date Smoking Tobacco: Never Assessed Education Answer Date Recorded Are you interested in more education? Not on stacy e 07/28/2022 Are you concerned about learning? Not on file 07/28/2022 No 07/28/2022 No 07/28/2022 Digital Access Answer Date Recorded No 08/29/2022 No 08/29/2022 No 08/29/2022 Reliable internet access at home? Not on file 08/29/2022 Device with a working camera? Not on file Comments Unknown Sex and Gender Information Value Date Recorded Sex Assigned at Not on file Legal Sex Female 12:55 PM EDT Gender Identity Not on file Sexual Orientation Not on file Plan of Treatment Not on file Medical Devices Not on file Insurance MEDICARE PART A & B [facility] PART A & B [facility] MEDICARE [facility] A & B [facility] MEDICARE PART A & B HEALTH MEDICARE PART A & B MEDICARE PART A & B [address] [place], [place] [address]HEALTH MEDICARE PART A & B [facility] MEDICARE PART A & B [facility] Care Teams Physician Neonatology Relationship Specialty Start Date End Date Unknown, Unknown, PCP - General 10/31/18 Additional Source Comments The information contained in this document represents components of the legal health record. It is not the complete legal health record.[facility]
--- OUTSIDE RECORDS SUMMARY | 2024-10-22 14:03 | XMS_ITS | Encounter Summary ---
Author Organization [employer] Address [address] [facility] [address] [place] [address] Care Team Providers Care Assistant Brand Manager Name Role Phone Sheila Rodriguez MD Primary Care Provider [phone] Reason for Visit * Reason Onset Date Comments Results 03/23/2023 Encounter Details Date Type Department Care Team ([facility] Contact Info) Description 03/23/[address] [facility] MEDICINE [address] [place] [address] Sheila Rodriguez MD [address] [place] [address] Results Social History Tobacco Use Types Packs/Day [...] lab work Date when done: 03/13/23 Facility: [facility] documented in this encounter Plan of Treatment Upcoming Encounters Date Type Department Care Team (Late st Contact Info) Description 11/13/2024 11:15 AM EDT Office Visit [facility]S [address] [place] [address] Sheila Rodriguez MD [address] [place] [address] documented as of this encounter Visit Diagnoses Not on filedocumented in this encounter Additional Health Concerns Assessment Noted Time PHQ-9 Depression Total Score: 0 03/07/20 23 10:23 AM EST documented as of this encounter Care Teams Assistant Brand Manager Relationship Specialty Start Date End Date Sheila Rodriguez MD [address] [place] [phone] PCP - General Family Medicine 05/06/12 documented as of this encounter
--- OUTSIDE RECORDS SUMMARY | 2024-10-22 14:03 | XMS_ITS | Clinical Summary ---
Author Organization [facility] Address [address] [place] [address] Phone Care Team Providers Care Field Operations Manager Name Role Phone Sheila Rodriguez MD Primary Care Provider [phone] Allergies Active Allergy Reactions Criticality Noted Date Comments Shellfish-Derived Products Other (see comments) 07/27/2020 Medications amLODIPine (NORVASC) 10 MG tablet Take 1 tablet by mouth 1 (one) time each day Active Blood Pressure Monitoring (Blood Pressure Cuff) misc 1 kit 9 Active Calcium Carbonate-Vitam in D (calcium-vitami n D) 500-200 MG-UNIT tablet Take 500 mg by mouth 2 (two) times a day with meals 1 Active hydroCHLOROthia zide 25 MG tablet TAKE 1 TABLET BY MOUTH EVERY DAY 90 tablet 5 1 Active allopurinol (ZYLOPRIM) 100 MG tablet Take 100 mg by mouth 1 (one) time each day Active furosemide (LASIX) 20 MG tablet Take 1 capsule by mouth 5 Active pregabalin (LYRICA) 75 MG capsule Take 75 mg by mouth at bed time Active Calcium Carb-Cholecalci ferol (Oyster Shell Calcium w/D) 500-5 MG-MCG tablet Take 1 tablet by mouth in the morning and 1 tablet in the evening. Take with meals. Active diclofenac (VOLTAREN) 50 MG EC tablet Take 50 mg by mouth 5 Active valsartan (DIOVAN) 320 MG tablet Take 1 tablet (320 mg total) by mouth 1 (one) time each day 90 tablet 3 5 Active valsartan (DIOVAN) 320 MG tablet TAKE 1 TABLET BY MOUTH 1 TIME EACH DAY. 90 tablet 3 5 10/08/19 25 Discontinu ed(Reorder (does not appear on AVS)) Active Problems Problem Noted Date Diagnosed Date [...] Date Resolved Date IgA myeloma 08/09/2020 08/09/2020 Encounters Date Type Department Care Team Description 10/07/2024 Refill [facility] [place] [address] [facility] [address] [place] [phone] Dayanara Quinones 09/13/2024 Refill [facility] [address] [place] [address] Chano Obregon MD 08/14/2024 Orders Only [facility] [address] [place] [address] Chano Obregon MD Persistent proteinuria; IgA nephropathy 08/07/2024 1:30 PM EDT Office Visit [facility] [address] [place] [address] Chano Obregon MD Persistent proteinuria (Primary Dx); IgA nephropathy 07/30/2024 Orders Only [facility] [place] [address] [facility] [address] [place] [phone] Chano Obregon MD from Last 3 Months Family History Medical History Relation Comments Cancer [...] Sign Reading Time Taken Comments Blood Pressure 102/68 08/07/2024 1:32 PM EDT Pulse 77 08/07/2024 1:32 PM EDT Temperature - - Respiratory Rate - - Oxygen Saturation 99% 08/06/2023 1:52 PM EDT Inhaled Oxygen Concentration - - Weight 134 kg (295 lb) 08/07/2024 1:32 PM EDT Height 157.5 cm (5' 2 ) 04/24/2019 12:01 PM EST Body Mass Index 53.96 04/24/2019 12:01 PM EST Plan of Treatment Upcoming Encounters Date Type Department Care Team (Late st Contact Info) Description 08/06/2025 1:45 PM EDT Office Visit [facility] [address] [place] [address] Chano Obregon MD [address] [facility] [address] [place] [phone] Health Maintenance Due Date Last Done Comments Hepatitis B Vaccine (1 of 3 - 19+ 3-dose series) 2001 10/18/2017 Pneumococcal Vaccine: Peds ( 0 to 5 Years) and At-Risk Patients (6 to 49 Years) (1 of 2 - PCV) 2001 Influenza Vaccine (#1) 2024 4, 03/07/2023, 02/21/2022, Additional history exists Procedures Procedure Name Priority Date/Time Associated Diagnosis Comments URINALYSIS MICROSCOPIC W/REFLEX TO CULTURE Routine 07/30/2024 1:03 PM EDT PROTEIN / CREATININE RATIO, URINE Routine 07/30/2024 1:03 PM EDT ALBUMIN, URINE, RANDOM Routine 07/30/2024 1:03 PM EDT CALCIUM Routine 07/30/2024 1:01 PM EDT CREATININE, BLOOD Routine 07/30/2024 1:0 1 PM EDT BUN Routine 07/30/2024 1:01 PM EDT ELECTROLYTE PANEL Routine 07/30/2024 1:0 1 PM EDT from Last 3 Months Results * (ABNORMAL) Urinalysis Microscopic w/Reflx to Culture (07/30/2024 1:03 PM EDT) Color Urine Yellow See orde r comments Appearance Urine Clear See order comments pH Urine 5.5 5.0 - 9.0 See order comments Glucose Urine Negative Negative mg/dL See order comments Blood, Urine Negative Negative See ord er comments Specific [place] Urine 1.015 1.005 - 1.025 See order comments Protein Urine Negative Neg-Trace mg/dL See order comments Ketones, Urine Negative Negative mg/dL See order comments Nitrite, Urine Negative Negative See o rder comments Leukocyte Esterase Urine Small (1+)(A) Negative See order comments RBC, Urine 0-2 0 - 2 /HPF See orde r comments WBC 0-5 0 - 5 /HPF See order comments Squamous Epithelial, Urine 6-10 0 - 2 /HPF See order comments Bacteria, Urine 1+ None Seen See order comments Hyaline Casts, Urine 0-2 0 - 2 /LPF See order comments 07/30/2024 1:03 PM EDT 07/30/2024 1:03 PM EDT Narrative LAUREL - 07/30/2024 2:03 PM EDT [id number] Urine, Clean Catch us Chano Obregon MD LAB URINE ORDERABLES Final Re sult LAUREL See order comments [place] [address] * Protein, Total, Random Urine w/Creatinine (Protein/Creat Ratio) (07/30/2024 1:03 PM EDT) Protein Urine Random 10 <12 mg/dL See order comments Protein/Creatin ine Ratio, Urine 0.11 <0.2 See order comments Comment: The spot urine protein:creatinine ratio may increase to 0.3 during normal . 07/30/2024 1:03 PM EDT 07/30/2024 1:03 PM EDT us Chano Obregon MD LAB URINE ORDERABLES Final Re sult Performing Organization Address [facility] Phone Number [place] [place]K See order comments [place] [address] * (ABNORMAL) Albumin, urine, random (07/30/2024 1:03 PM EDT) Creatinine, Urine 88.78 mg/dL Se e order comments Urine Microalbumin 45.0 mg/L See order comments Microalbumin/Crea tinine Ratio 50.6(H) <30 ug/mg cr See order comments Comment: Albumin/Creatinine Ratio Reference Ranges: Normal: < 30 ug/mg creatinine Microalbuminuria: 30 - 300 ug/mg creatinine Clinical Albuminuria: > 300 ug/mg creatinine 07/30/2024 1:03 PM EDT 07/30/2024 1:03 PM EDT us Chano Obregon MD LAB URINE ORDERABLES Final Re sult Performing Organization Address [facility] Phone Number [place] See order comments [place] [address] * Creatinine (07/30/2024 1:01 PM EDT) Creatinine Serum 0.73 0.5 - 1.4 mg/dL See order comments eGFR (Calc) >60 See orde r comments Comment: Chronic Kidney Disease: Estimated GFR < 60 mL/min/1.73m2 Severe Kidney Disease: Estimated GFR < 15 mL/min/1.73m2 07/30/2024 1:01 PM EDT 07/30/2024 1:01 PM EDT us Chano Obregon MD LAB BLOOD ORDERABLES Final Re sult Performing Organization Address [facility] de Phone Number [facility] See order comments [place] [address] * (ABNORMAL) BUN (07/30/2024 1:01 PM EDT) BUN 21(H) 9 - 16 mg/dL See order comments 07/30/2024 1:01 PM EDT 07/30/2024 1:01 PM EDT Chano Obregon MD LAB BLOOD ORDERABLES Final Re sult Performing Organization Address [facility] de Phone Number [place] [place]K See order comments [place] [address] * Calcium (07/30/2024 1:01 PM EDT) Calcium 10.1 8.4 - 10.2 mg/dL See order comments 07/30/2024 1:01 PM EDT 07/30/2024 1:01 PM EDT Chano Obregon MD LAB BLOOD ORDERABLES Final Re sult Performing Organization Address [facility] Phone Number [facility] See order comments [place] [address] * Electrolyte panel (07/30/2024 1:01 PM EDT) Sodium 139 135 - 145 mmol/L See order comments Potassium 3.6 3.3 - 5.1 mmol/L See order comments Chloride 102 96 - 108 mmol/L See order comments Bicarbonate (CO2) 28 22 - 29 mmol/L See order comments Anion Gap 13 12 - 20 See order comments 07/30/2024 1:01 PM EDT 07/30/2024 1:01 PM EDT us Chano Obregon MD LAB BLOOD ORDERABLES Final Re sult Performing Organization Address [facility] de Phone Number [facility] See order comments [place] [address] from Last 3 Months Insurance Medicare Medicaid [place] Medicare [place] Care Teams Field Operations Manager Relationship Specialty Start Date End Date Sheila Rodriguez MD [address] [place] [phone] PCP - General 04/12/20
--- OUTSIDE RECORDS SUMMARY | 2024-10-22 14:03 | XMS_ITS | Clinical Summary ---
Author Organization [employer] [facility] ity Address [address] [place] [address] Care Team Providers Care County Records Management Officer Name Role Phone Unavailable Primary Care Provider [...] 2003 COVID-19 Vaccine (2023-2 5 season) 2023 Depression Screening 04/02/2024 Influenza Vaccine (#1) 2024 HIB Vaccines Aged Out No longer [...] and At-Risk Patients (6 to 49 Years) Aged Out No longer eligible b ased on patient's age to complete this topic RSV Immunization Patients Un lexi 20 months Aged Out No longer eligible b ased on patient's age to complete this topic Varicella Vaccines Aged Out No longer eligible based on patient's age to complete this topic
== END 2024-10-22 13:29 | disposition home or self-care (01) ==
LOC: HO.XRAY 13:28
PROVIDERS: Absent Provider Nurse Practitioner Family; PCP Student in an Organized Health Care Education/Training Program; Visit Provider Student in an Organized Health Care Education/Training Program
DX: M16.0 Bilateral primary osteoarthritis of hip (principal); M25.551 Pain in right hip; M25.552 Pain in left hip; R10.30 Lower abdominal pain, unspecified
CPT/HCPCS: 73522; 74018

== ENCOUNTER → 2024-10-22 13:33 | Outpatient (BNV) | payer MEDICARE, MEDICAID, SELFPAY | PROVIDERS: Absent Provider Nurse Practitioner Family; PCP Student in an Organized Health Care Education/Training Program; Visit Provider Radiology Diagnostic Radiology | DX: R10.9 Unspecified abdominal pain (principal); M16.0 Bilateral primary osteoarthritis of hip; M47.815 Spondylosis without myelopathy or radiculopathy, thoracolumbar region | CPT/HCPCS: 74018 ==